=== PATIENT | female | born 2000 | race Caucasian/White ===

== ENCOUNTER 2021-07-18 01:08 | Emergency (ER) | payer OTHER ==
[~2021-07-18] VITALS: Ht 157.5 cm; Wt 68.0 kg
[2021-07-18 03:57] VITALS: BP 152/84
== END 2021-07-18 04:18 | disposition home or self-care (01) ==
LOC: ER 01:08
DX: S03.2XXA Dislocation of tooth, initial encounter (principal); F10.129 Alcohol abuse with intoxication, unspecified; X58.XXXA Exposure to other specified factors, initial encounter; Y93.89 Activity, other specified; Y92.89 Other specified places as the place of occurrence of the external cause; Y99.8 Other external cause status